=== PATIENT | male | born 1940 | race Caucasian/White ===

== ENCOUNTER 2022-03-14 14:53 | Inpatient (IN) | payer MEDICARE, SELFPAY ==
[2022-03-14] VITALS (8 sets, daily range): BP systolic 57–218; BP diastolic 37–113; PULSE 68–81; RESP 14–19; TEMP 36.2–36.3; O2SAT 91–96
--- NOTE | 2022-03-14 16:13 | ED_ITS ---
HPI - Fall General: Chief Complaint: Fall Stated Complaint: fall, weakness Time Seen by Provider: 03/14/22 15:46 Source: patient and family Mode of arrival: wheelchair Limitations: no limitations History of Present Illness: 81-year-old male presents emergency room complaining of generally not feeling well and being weak. He fell multiple times yesterday when he tripped over some stones and stumbled in the driveway. He denies any loss consciousness or striking his head. He is not on any anticoagulants. Is complaining of severe pain in the abdomen particularly in the right lower quadrant radiating down into his groin. In addition that is complaining of knee pain related on his knees when he initially arrived he was actually very good historian was awake alert oriented answer questions appro priately his family assisted in responding with questions. He denied any chest pain or shortness of breath this time he had no focal neurologic deficits. MD complaint: fall Onset (ago): day(s) Fall from: standing Fall witnessed: yes, by family Place fall occurred: home Loss of consciousness: None Prolonged down time: no Symptoms prior to fall: lightheadedness and dizziness Context: tripped/slipped Location of injury: abdomen Location of injury - extremities: Bilateral: knee Associated symptoms-after fall: Reports abdominal pain, difficulty walking and weakness; Denies chest pain, confusion, headache(s), hematuria, lightheadedness, neck pain, numbness, short of breath or vertigo Review of Systems Const: Reports: body aches, change in appetite, fatigue and malaise; Denies: fever(s) or chills ENMT: Denies: throat pain, ear or mastoid pain, nasal discharge or nasal congestion Card: Denies: chest pain, palpitations, irregular heart rhythm, edema, lightheadedness, dyspnea on exertion or orthopnea Resp: Reports: dyspnea; Denies: productive cough or non-productive cough GI: Reports: abdominal pain and nausea; Denies: vomiting, hematemesis, coffee ground emesis, diarrhea, constipation, bloating, hematochezia or melena : Denies: flank pain, difficulty urinating, dysuria, urinary frequency, urinary urgency or hematuria Musc: Denies: neck pain Skin/Breast: Denies: rash or pruritus Neuro: Reports: difficulty walking; Denies: headache(s), vertigo or confusion PFSH ED PFSH: Medical History Abdominal aortic aneurysm COPD (chronic obstructive pulmonary disease) Hypertension Social History Smoking and tobacco status: former smoker Alcohol intake: former Physical Exam Const: ORIENTATION/CONSCIOUSNESS: Yes awake, Yes oriented to person, Yes oriented to place and Yes oriented to time HENMT: COMMON NORMALS: normocephalic and atraumatic HEAD & SCALP: normocephalic and atraumatic Neck/C-Spine: COMMON NORMALS: no JVD Resp: COMMON NORMALS: normal respiratory effort, No retractions, No use of accessory muscles and clear to auscultation bilaterally AUSCULTATION: clear to auscultation bilaterally Cardio: COMMON NORMALS: no JVD, regular rate, regular rhythm and No murmurs present (Cardio) RATE: regular rate RHYTHM: regular rhythm GI: PALPATION: Yes Tenderness to palpation present (GI) Details: RLQ and No Guarding due to palpation present (GI) OTHER: Large palpable pulsating mass in the right lower quadrant. On palpation is roughly 8 to 10 cm in diameter. It is pulsating and tender. Femoral pulses are palpable bilaterally Extremity: COMMON NORMALS: normal to inspection, capillary refill normal, no clubbing, cyanosis or edema, no calf tenderness and no pedal edema Neuro: SENSORIUM/ORIENTATION: Yes oriented to person, Yes oriented to place and Yes oriented to time Skin: COMMON NORMALS: no rashes or lesions noted GENERAL SKIN EXAM: no rashes or lesions noted Course Vital Signs: Vital signs: Vital Signs Temperature 98.6 F 03/15/22 04:00 Pulse Rate 84 03/15/22 04:00 Respiratory Rate 19 H 03/15/22 04:00 Blood Pressure 83/56 03/15/22 04:00 Pulse Oximetry 91 03/14/22 17:41 MDM - Fall Medical Decision Making Initially upon arrival patient has focal pain in the right lower quadrant there is a pulsating mass and a palpable aneurysm. Shortly after the CT patient rapidly decompensated and was difficult to assess a pulse he became nonresponsive. The family asked that we not intervene they wanted him to be a DN arm. Clinically I still suspect he is having complications of his aneurysm however the CT was read as negative. Family states his health has been deteriorating and they wished for him to just have comfort cares. Discussed with the hospitalist orders written. After he decompensated when the CT was done his heart heart rate dropped into the 40s for period time his blood pressure decreased to 50 systolic. He is given morphine and Ativan for comfort for air hunger and apparent pain. He was also given nasal cannula oxygen. Both the family members present are healthcare providers fully understand where he is at medically and are comfortable with the Do Not Recussitate status. Medical Records I reviewed the patient's medical records. Lab Data I reviewed the patient's lab results. : 03/14/22 22:55 03/14/22 22:[address] 03/14/22 16:14 IMPRESSION: No acute intracranial abnormality. Abdomen/Pelvis CTA 03/14/22 16:24 IMPRESSION: 1. 8.0 cm infrarenal abdominal aortic aneurysm with extension to the bifurcation. No dissection or evidence for rupture. 2. 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 No dissection. 3. 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 Laboratory Results WBC 11.0 10^3/uL (4.0-10.0) H 03/14/22 16:38 RBC 4.60 10^6/uL (4.1-5.3) 03/14/22 16:38 Hgb 14.0 g/dL (11.7-16.6) 03/14/22 16:38 Hct 42.3 % (42.0-52.0) 03/14/22 16:38 MCV 92.0 fl (80-94) 03/14/22 16:38 MCH 30.4 pg (28.0-34.0) 03/14/22 16:38 MCHC 33.1 g/dL (30.0-36.0) 03/14/22 16:38 RDW 13.9 % (12.1-15.1) 03/14/22 16:38 Plt Count 254 10^3/cmm (130-400) 03/14/22 16:38 MPV 10.2 fL (7.4-10.4) 03/14/22 16:38 Neut % (Auto) 82.3 % 03/14/22 16:38 Lymph % (Auto) 9.4 % 03/14/22 16:38 [place] % (Auto) 7.4 % 03/14/22 16:38 Eos % (Auto) 0.3 % 03/14/22 16:38 Baso % (Auto) 0.3 % 03/14/22 16:38 Neut # (Auto) 9.07 10^3/uL (1.8-7.7) H 03/14/22 16:38 Lymph # (Auto) 1.0 10^3/uL (0.8-4.8) 03/14/22 16:38 [place] # (Auto) 0.8 10^3/uL (0.2-0.9) 03/14/22 16:38 Eos # (Auto) 0.0 10^3/uL (0.0-0.8) 03/14/22 16:38 Baso # (Auto) 0.0 10^3/uL (0.0-0.1) 03/14/22 16:38 Nucleated RBC % (auto) 0 % 03/14/22 16:38 Nucleated RBCs # 0.0 /100WBC 03/14/22 16:38 Sodium 141 mmol/L (136-145) 03/14/22 16:38 Potassium 4.7 mmol/L (3.5-5.1) 03/14/22 16:38 Chloride 100 mmol/L (98-107) 03/14/22 16:38 Carbon Dioxide 29 mmol/L (22-29) 03/14/22 16:38 Anion Gap 16.7 (5-19) 03/14/22 16:38 BUN 20 mg/dL (8-23) 03/14/22 16:38 Creatinine 1.0 mg/dL (0.7-1.2) 03/14/22 16:38 GFR Calculation Not Reportable 03/14/22 16:38 Glucose 125 mg/dL (65-115) H 03/14/22 16:38 Calculated Osmolality 296 mOsm/kg (285-295) H 03/14/22 16:38 Calcium 9.8 mg/dL (8.5-10.5) 03/14/22 16:38 Total Bilirubin 0.6 mg/dL (0.15-1.2) 03/14/22 16:38 AST 18 U/L (0-40) 03/14/22 16:38 ALT 11 U/L (0-41) 03/14/22 16:38 Alkaline Phosphatase 75 IU/L (40-130) 03/14/22 16:38 Total Protein 8.0 g/dL (6.6-8.7) 03/14/22 16:38 Albumin 4.9 g/dL (3.5-5.2) 03/14/22 16:38 Globulin 3.1 g/dL (1.3-4.6) 03/14/22 16:38 Discharge Plan Discharge Patient Disposition: Admitted As Inpatient Admit Provider: Eren Hernandez Clinical Impression: Abdominal aortic aneurysm rupture, Acute respiratory failure with hypoxia Condition: Stable Coding Level of Care Code ED Precise Winder for Minesh Morel
--- NOTE | 2022-03-14 16:14 | CTR_ITS ---
PROCEDURE INFORMATION: Exam: CT Head Without Contrast Exam date and time: 03/14/2022 4:44 PM Age: 81 years old Clinical indication: Injury or trauma; Fall; Blunt trauma (contusions or hematomas); Additional info: Fall closed head injury TECHNIQUE: Imaging protocol: Computed tomography of the head without contrast. Radiation optimization: All CT scans at this facility use at least one of these dose optimization techniques: automated exposure control; mA and/or kV adjustment per patient size (includes targeted exams where dose is matched to clinical indication); or iterative reconstruction. COMPARISON: No relevant prior studies available. RADIATION DOSE METRICS: Total DLP (mGy-cm): 968.36 FINDINGS: Brain: No hemorrhage. Moderate diffuse cerebral atrophy and hypoattenuation within the periventricular and deep white matter tracts likely reflecting chronic small vessel ischemic disease. No mass effect. Cerebral ventricles: No ventriculomegaly. Paranasal sinuses: Visualized sinuses are unremarkable. No fluid levels. Mastoid air cells: Visualized mastoid air cells are well aerated. Bones/joints: Unremarkable. No acute fracture. Soft tissues: Unremarkable. CT/CT head wo con* [id number] IMPRESSION: No acute intracranial abnormality.
--- NOTE | 2022-03-14 16:14 | ECG_ITS ---
[facility] Test Date: 2022-03-14 Pat Name: Tor Elena Department: Room: Gender: Male Caterers Helper: : [id number] Requested By: Wenceslao White Order Number: [id number] Caitlyn MD: Ricardo Call M.D. Measurements Intervals [place] Rate: 76 P: 85 VT: 151 QRS: 84 QRSD: 81 T: 84 QT: 377 QTc: 424 Interpretive Statements SINUS RHYTHM POSSIBLE LEFT ATRIAL ENLARGEMENT [-0.1mV P-WAVE IN V1/V2] WARNING: DATA QUALITY MAY AFFECT INTERPRETATION No previous ECG available for comparison Electronically Signed On 03-15-2022 18:57:45 CDT by Ricardo Call M.D. [id number]
--- NOTE | 2022-03-14 16:24 | CTR_ITS ---
PROCEDURE INFORMATION: Exam: CTA Abdomen and Pelvis With Contrast Exam date and time: 03/14/2022 4:51 PM Age: 81 years old Clinical indication: Abdominal pain; Additional info: Palpable aaa TECHNIQUE: Imaging protocol: Computed tomographic angiography of the abdomen and pelvis with contrast. 3D rendering (Not supervised by radiologist): MIP and/or 3D reconstructed images were created by the technologist. Radiation optimization: All CT scans at this facility use at least one of these dose optimization techniques: automated exposure control; mA and/or kV adjustment per patient size (includes targeted exams where dose is matched to clinical indication); or iterative reconstruction. Contrast material: OMNI 350; Contrast volume: 95 ml; Contrast route: INTRAVENOUS (IV); COMPARISON: No relevant prior studies available. RADIATION DOSE METRICS: Total DLP (mGy-cm): 897.72 FINDINGS: Diaphragm: Mild elevation of the left diaphragm. 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 No dissection. Fusiform aneurysmal dilatation of the infrarenal abdominal aorta with an outer wall diameter of 8.0 cm and a contrast opacified lumen of 6.3 cm. This extends to the bifurcation. No dissection or evidence for aneurysm rupture. Celiac trunk and mesenteric arteries: Moderate narrowing of the proximal celiac artery. Calcified plaque with mild stenosis at the origin of the superior mesenteric artery. Renal arteries: No occlusion or significant stenosis. Right iliac arteries: Mild ectasia of the right common iliac artery. Mild calcified plaque in the common and external iliac arteries without significant stenosis. Left iliac arteries: Mild ectasia of the left common iliac artery. Calcified plaque in the common and external iliac arteries without significant stenosis. Liver: No mass. Gallbladder and bile ducts: Densely calcified stones in the gallbladder which is partially contracted. No wall thickening. The bile ducts are normal. Pancreas: Unremarkable. No mass. No ductal dilation. Spleen: Calcified granulomas in the spleen. Adrenal glands: Unremarkable. No mass. Kidneys and ureters: Hypodensities in both kidneys are too small to characterize but are most likely cysts. No follow-up imaging recommended. The kidneys are otherwise unremarkable. No hydronephrosis. 3 mm nonobstructing left renal calculus. Stomach and bowel: Unremarkable. No obstruction. No mucosal thickening. Appendix: No evidence of appendicitis. Intraperitoneal space: Unremarkable. No free air. No significant fluid collection. Lymph nodes: Unremarkable. No enlarged lymph nodes. Urinary bladder: Unremarkable. No mass. Reproductive: Mild enlargement of the prostate.. Bones/joints: 7 mm degenerative anterior subluxation of L5 on S1. Degenerative changes of the lumbar spine with multilevel disc space narrowing and spondylosis. No acute fracture. Soft tissues: Unremarkable. CT/CT angio abdomen pelvis [id number] IMPRESSION: 1. 8.0 cm infrarenal abdominal aortic aneurysm with extension to the bifurcation. No dissection or evidence for rupture. 2. 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 No dissection. 3. 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
[2022-03-14] MEDS: iohexol 350 mg/mL 100 mL Btl IV (16:57)
[2022-03-14 17:02] LABS: Basophils % 0.3 %; Eosinophils % 0.3 %; Hematocrit 42.3 % (42.0-52.0); Lymphocytes % 9.4 %; Mean Corpuscular HGB Conc 33.1 g/dL (30.0-36.0); Mean Corpuscular Hemoglobin 30.4 pg (28.0-34.0); Mean Platelet Volume 10.2 fL (7.4-10.4); Monocytes # 0.8 10^3/uL (0.2-0.9); Monocytes % 7.4 %; Neutrophils # 9.07 10^3/uL (1.8-7.7); Neutrophils % 82.3 %; Nucleated Red Blood Cells % 0 %; Platelet Count 254 10^3/cmm (130-400); Red Cell Distribution Width 13.9 % (12.1-15.1)
--- NOTE | 2022-03-14 17:10 | PC.NURSE ---
blue light alarm going off in patient room, RN took crash cart in, Dr. Belcher at bedside, states they do not want anything done, they discussed this and states comfort only care.
[2022-03-14 17:17] LABS: Alanine Aminotransferase 11 U/L (0-41); Albumin Level 4.9 g/dL (3.5-5.2); Alkaline Phosphatase 75 IU/L (40-130); Anion Gap 16.7 (5-19); Aspartate Amino Transferase 18 U/L (0-40); Blood Urea Nitrogen 20 mg/dL (8-23); Calcium 9.8 mg/dL (8.5-10.5); Carbon Dioxide 29 mmol/L (22-29); Chloride 100 mmol/L (98-107); Globulin 3.1 g/dL (1.3-4.6); Glucose 125 mg/dL (65-115); Osmolality Calculated 296 mOsm/kg (285-295); Potassium 4.7 mmol/L (3.5-5.1); Sodium 141 mmol/L (136-145); Total Bilirubin 0.6 mg/dL (0.15-1.2)
[2022-03-14] MEDS: LORazepam 2 mg/mL INJ 1 mL IVP ×2 (17:26→20:45)
[2022-03-14] MEDS: morphine 4 mg/mL SDV 1 mL IVP (17:26)
--- NOTE | 2022-03-14 17:44 | PC.NURSE ---
FAMILY AT PT BEDSIDE. FAMILY WISHES FOR PT TO BE KEPT COMFORTABLE UNTIL TIME OF . PT GIVEN MORPHINE AND ATIVAN FOR COMFORT. FAMILY HAS NO FURTHER REQUESTS AT THIS TIME.
--- NOTE | 2022-03-14 18:04 | PM.HP ---
Providers/Chief Complaint Primary Care Provider: Sheila Rodriguez DO Chief Complaint: fall, weakness History of Present Illness Tor Elena is a 81 year old male who presents [facility] due to weakness, fatigue, abdominal pain, back pain. Currently patient is not alert and oriented x3, agonal breathing, with central cyanosis, weak thready pulse, does not respond to his name, nasal flaring, intercostal retractions, in respiratory failure, and what appears to be hemorrhagic shock from perforated abdominal aortic aneurysm. Patient's and son who is a medic are at bedside. Patient's and son tell me that for the last few days, patient has been feeling lightheaded, dizzy, has had falls, syncopal episodes. He is also been complaining of abdominal pain and back pain. Patient was brought into the emergency room due to fall, weakness lightheadedness, dizziness, according to ER physician upon arrival he was able to answer questions, his blood pressure was 183/101, saturating 96 on room air, pulse was 81, was responsive, he was pointing to his abdomen, which was pulsating I was told, it was complaining of abdominal pain and back pain. Immediately there was a concern for abdominal aortic aneurysm rupture, he was taken immediately back to CT, CT showed an 8 cm infrarenal abdominal aortic aneurysm with extension with extension to bifurcation, no evidence of rupture or dissection, hemoglobin 14. When he is brought back from CT, according to son and he was alert and awake, responsive but suddenly he became unresponsive onset, his eyes rolled back, became agonal breathing, his blood pressures dropped in pulse became weak and thready. Upon discussion with ER physician and ER staff, the concern was for abdominal aortic aneurysm rupture, patient's and son at bedside had a discussion about goals of care, they wanted to proceed with comfort care, they did not want any medical or surgical intervention. They just wanted their father to be comfortable, to ease his pain eases suffering, has received 4 mg of morphine, 1 mg Ativan. During my examination, patient has a weak thready pulse, at times not detectable, agonal breathing, is nonresponsive, has peripheral cyanosis, central cyanosis around the lips, he is moaning at times, his carotid pulse is barely palpable, he does not respond to his name. I confirmed with family members that he certainly does have abdominal aortic aneurysm with 8 cm, although the CT scan does not show a rupture or dissection. Based upon what I see in front of me right now, it looks like it has ruptured sometime ago, likely after he was brought back from CT. He is abdomen currently is distended,rigid, nonpulsatile, indicating that its likely ruptured. I did offer further work-up to family members however they just want him to be comfortable. Patient is a DNR, DNI. According to family members patient's son and patient's , he would not want to have any aggressive interventions, he would not want to have any surgery, he would not want to have any aggressive interventions, he would just want to remain comfortable at this point, this would be his wish. Dcomfort care, I discussed risks and benefits, they voiced understanding, all questions answered, opportunity to ask questions, they did not have any questions, they just want their father and to remain comfortable. Agreed to proceed with comfort care, will move to 2-73 bed 1 on comfort care. In respect to patient's family, and their loss, as they were crying in the room, I did not ask a detailed medical history, surgical history, social history. I wanted to respect their loss, I wanted them to spend as much as time as they could with thier dying family member, who is in the process of passing away, I wanted to respect their loss. Review of Systems General: Reports: ROS unobtainable due to mental status Medications/Allergies Home Medications Medication Instructions Recorded Confirmed Last Taken Type Vitamin B-12 1 tab PO QAM 03/14/22 03/14/22 Unknown History aspirin 81 mg tablet,delayed 81 mg PO QAM 03/14/22 03/14/22 03/14/22 History release theophylline 400 mg 400 mg PO QAM 03/14/22 03/14/22 03/14/22 History tablet,extended release 24 hr Allergies Allergy/AdvReac Type Severity Reaction Status Date / Time No Known Allergies Allergy Verified 03/14/22 15:53 Vitals/I&O/Wt Last Vital Signs Temp 97.1 F L 03/14/22 15:26 Pulse 81 03/14/22 16:32 Resp 16 03/14/22 16:32 BP 57/37 03/14/22 17:41 Pulse Ox 91 03/14/22 17:41 Weight last 48 hrs Weight 54.431 kg Physical Exam Narrative: Alert oriented x0 In acute respiratory failure, agonal breathing, peripheral and central cyanosis Intercostal retractions, nasal flaring At times his respirations are 0-2 No significant respiratory effort Decreased breath sound in all lung martinez Cardiovascular, heart sounds are distant, I could discern S1, S2, rate is tachycardic, pulses peripherally carotid, and peripheral pulses are weak and thready Abdomen is distended, rigid, I did not palpate or do an extensive examination in respect for patient suffering Does not respond to name, does not open his eyes Data : 03/14/22 16:38 03/14/22 16:38 A&P Assessment and plan (1) Abdominal aortic aneurysm rupture: Intra-abdominal aortic aneurysm rupture, with hemorrhagic shock, with acute respiratory failure Status: Acute (2) Hemorrhagic shock: Status: Acute (3) Acute respiratory failure with hypoxia: Status: Acute (4) Unresponsive: Status: Acute Plan - Proceed with comfort care Attestations Medical Necessity Statement*: Patient requires hospitalization, for inpatient comfort care, for infrarenal intra-abdominal aortic aneurysm rupture Coding Level of Care Code Acute Information Security Consultant for [facility] Diagnoses Abdominal aortic aneurysm rupture I71.3 Hemorrhagic shock R57.8 Acute respiratory failure with hypoxia J96.01 Unresponsive R41.89
[2022-03-14] MEDS: morphine 4 mg/mL SDV 1 mL 2 MG IVP (18:18)
[2022-03-14 23:23] LABS: Basophils % 0.3 %; Hemoglobin 11.9 g/dL (11.7-16.6); Lymphocytes # 0.6 10^3/uL (0.8-4.8); Lymphocytes % 3.8 %; Mean Corpuscular HGB Conc 33.1 g/dL (30.0-36.0); Mean Corpuscular Hemoglobin 30.4 pg (28.0-34.0); Mean Corpuscular Volume 91.8 fl (80-94); Mean Platelet Volume 10.4 fL (7.4-10.4); Monocytes # 1.3 10^3/uL (0.2-0.9); Monocytes % 8.8 %; Neutrophils # 13.04 10^3/uL (1.8-7.7); Neutrophils % 86.4 %; Nucleated Red Blood Cells % 0 %; Platelet Count 218 10^3/cmm (130-400); Red Blood Count 3.92 10^6/uL (4.1-5.3); Red Cell Distribution Width 14.3 % (12.1-15.1); White Blood Count 15.1 10^3/uL (4.0-10.0)
[2022-03-14 23:31] LABS: Alanine Aminotransferase 11 U/L (0-41); Alkaline Phosphatase 66 IU/L (40-130); Blood Urea Nitrogen 24 mg/dL (8-23); Calcium 8.8 mg/dL (8.5-10.5); Carbon Dioxide 24 mmol/L (22-29); Chloride 101 mmol/L (98-107); Globulin 2.9 g/dL (1.3-4.6); Glucose 148 mg/dL (65-115); Osmolality Calculated 291 mOsm/kg (285-295); Sodium 137 mmol/L (136-145); Total Bilirubin 0.5 mg/dL (0.15-1.2); Total Protein 6.9 g/dL (6.6-8.7)
[2022-03-14 23:32] LABS: Anion Gap 16.7 (5-19); Aspartate Amino Transferase 18 U/L (0-40); Potassium 4.7 mmol/L (3.5-5.1)
[2022-03-15 04:00] VITALS: BP 83/56; PULSE 84; RESP 19; TEMP 37
[2022-03-15] MEDS: LORazepam 2 mg/mL INJ 1 mL 1 MG IVP (05:03)
[2022-03-15] MEDS: morphine 4 mg/mL SDV 1 mL IVP ×2 (05:04→11:27)
[2022-03-15] MEDS: morphine 10 mg/0.5 mL oral liq UD 2 MG SUBLINGUAL ×2 (06:41→14:44)
[2022-03-15 08:00] VITALS: PULSE 82; RESP 16
--- NOTE | 2022-03-15 10:41 | PC.CHAP ---
Pastoral Care Encounter/Spiritual Assessment Type of Contact [] Declined customs consultant visit [] Patient/Family/Request visit [] Outpatient visit [] Follow-up visit [] Physician referral [] Code/Alert [x] Routine visit [] Staff referral [] Actively dying [] Patient sleeping [] Family support [] [] Out of room [] Palliative care [x] [x] Receiving care in room [] Pre-surgical visit [] Trauma [x] Long length of stay [] ICU visit [] Other: Relational/Emotional Strength [x] Patient feels connected with others/family/visitors/staff [] Distress [] Loneliness/isolation [] Abandonment Spirituality of Patient [x] Person of Poly [] Attends Mormon of their Poly [x] Believes in Prayer [] Reads Bible or Jew materials [] There are Spiritual issues to be addressed Scoop Operator Interventions [x] Prayer [x] Active listening [x] Non-anxious presence [x] Spiritual/emotional support [x] Crisis/trauma care [] Spiritual counseling [] Bereavement support [] Provided bereavement packet [] Provided Bible/devotional materials [] Provided toy/stuffed animal, coloring book to patient or family member [] Provided Communion [] Anointing/[place] [] Salvation [] Completed spiritual assessment [] Other: Impact on Illness or Injury [] Angry [] Fearful [] Anxious [] Often cries [] Exhaustion [x] Unable to work [] Unable to attend evangelical [] Unable to walk/stand [] Unable to read [] Unable to drive [] Unable to eat/drink [] Unable to sleep [] Unable to be with family [] Patient intubated [] Other: Summary with familyn taking care of doctors report +2 end of life Time spent with patient 10 mins
[2022-03-15 11:27] VITALS: RESP 11
[2022-03-15 11:46] VITALS: PULSE 85; RESP 14; O2SAT 95
--- NOTE | 2022-03-15 14:08 | P.DS_ITS ---
Discharge Providers Date of Admission: 03/14/22 17:32 Date of Discharge: March 15, 2022 Attending Provider at Admission: Eren Hernandez MD Attending Provider at Discharge: Eren Hernandez MD Primary Care Provider: Sheila Rodriguez DO Diagnoses at Discharge Discharge Diagnosis (1) Abdominal aortic aneurysm rupture: Status: Acute (2) Hemorrhagic shock: Status: Acute (3) Acute respiratory failure with hypoxia: Status: Acute (4) Unresponsive: Status: Acute Reason for Visit Reason for Visit: fall, weakness Hospital Course Hospital Course This is a 81-year-old male with a past medical history of hypertension, COPD, who presents to [facility] due to concerns for fall, weakness, syncope, back pain, abdominal pain, and pulsatile abdomen On admission, patient was found to have a pulsatile abdomen, with abdominal pain and back pain, immediately there was concerns for perforated abdominal aortic aneurysm. On presentation he was alert oriented x3, no significant hemodynamic instability, he was taken to CAT scan, and found to have an 8 cm infrarenal abdominal aortic aneurysm with extension to the bifurcation no evidence of dissection or evidence of rupture. Once patient was brought back from CAT scan, in his room, family members were at bedside, patient suddenly became nonresponsive, had a weak and thready pulse, blood pressures 50s over 40s, agonal breathing. Immediately there was concerns for perforated abdominal aortic aneurysm, with hemorrhagic shock, and acute respiratory failure. Patient's son and were at bedside, they did not want to have any medical intervention, they did not want to have any further testing, they wanted to proceed with comfort care, they did not want him to suffer. Patient was admitted to [facility] for comfort care. Throughout the night, patient's blood pressures would fluctuate, did have some hypertensive episodes, his color did improve, his oxygen requirements have increased to 3 L, however his mentation remained depressed, alert oriented x0, was maintaining his airway. Upon my examination the morning of 03/15/2022, he was not responsive, he at times would open his eyes, had agonal breathing, family was concerned as he was not moving his right side, upon my examination it was hard to discern any focal neurologic deficits, as he is not responsive, pupils were pinpoint, nonreactive to light, did not withdraw from pain, did not respond to any stimuli, not respond to sternal rub, had nasal flaring, intercostal retractions, his carotid pulse was palpable, but thready peripheral pulses were certainly weak and thready, compared to yesterday he looked ill a bit more flushed, but still pale. Abdominal exam, abdomen remain hard, rigid, at times I could see pulse of his abdomen, family was telling me that he would wince significantly pain if his abdomen was palpated. However I could not get any pain response from him. I advised family that he has acute hypoxic respiratory failure, acute encephalopathy, evidence of hemorrhagic shock, as his hemoglobin is decreased 11.6, with concerns for perforated abdominal aortic aneurysm. I think due to his sudden deterioration, likely the abdominal aorta which was 8 cm could have perforated now with a contained rupture or it might of dissected. His blood pressures have fluctuated, but remains hypotensive, still has evidence of hemorrhagic shock. Given now given family's concern for right-sided deficits, I cannot discern any, he was fairly nonresponsive, I could not discern any facial droop, but family says that he is not moving his right side, would be evidence of acute CVA, likely secondary to hemorrhagic shock, hypotension received else he can decrease cerebral perfusion. I had a detailed discussion with patient's son, daughter and family at bedside -I discussed options available, we could do further testing, including echo, blood work, repeat CT of the abdomen, CT of the head, and seeing at all if there is any interventions possible -Continue comfort care here in the hospital -Can transition home on comfort care, hospice -I discussed all options available to patient's, all risks and benefits associated, all parties voiced understanding, voiced understanding, all questions answered, opportunity to ask questions -It was family's decision in the emergency room, and as soon as I enter the room the morning of 03/15/2022, that they wanted their father to be comfortable -Patient's son and wanted their father and to remain comfortable, he is his pain is easily suffering, they did not want any further interventions, did not want any further testing, they wanted to take him home on hospice -After discussing the risks and benefits of home hospice, opportunity to ask questions, all parties voiced understanding, all questions answered, agreed to proceed with home hospice -Arrangements were made for home hospice, patient was discharged 03/15/2022 on home hospice Physical Exam Const: OTHER: Not responsive, agonal breathing, at times does open his eyes, Not moving his right side, does have some left-sided movements Pupils are pinpoint nonreactive to light Does not withdraw from stimuli, does not respond to sternal rub Has intercostal retractions, and slight nasal flaring Carotid pulse palpable, is a bit weak and thready Peripheral pulses are certainly thready and weak Looks pale, flushed but better compared to yesterday Resp: COMMON NORMALS: normal respiratory effort, No retractions, No use of accessory muscles and clear to auscultation bilaterally AUSCULTATION: clear to auscultation bilaterally Cardio: COMMON NORMALS: regular rate, regular rhythm, S1 normal heart sound present and S2 normal heart sound present RATE: regular rate RHYTHM: regular rhythm HEART SOUNDS: S1 normal heart sound present and S2 normal heart sound present GI: COMMON NORMALS: Normal to inspection, nondistended, normoactive bowel sounds present, Soft to palpation and non-tender PALPATION: Yes Soft to palpation Extremity: COMMON NORMALS: no pedal edema Discharge Data Studies Completed and Pending Completed Studies During Hospitalization Category Date Time Status CT angio abdomen pelvis [id number] Stat Cat Scan 03/14/22 16:[address] head wo con* [id number] Stat Cat Scan 03/14/22 16:14 Completed Radiology Impressions Head CT 03/14/22 16:14 IMPRESSION: No acute intracranial abnormality. Abdomen/Pelvis CTA 03/14/22 16:24 IMPRESSION: 1. 8.0 cm infrarenal abdominal aortic aneurysm with extension to the bifurcation. No dissection or evidence for rupture. 2. 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 No dissection. 3. 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 Laboratory Results WBC 15.1 10^3/uL (4.0-10.0) H 03/14/22 22:55 RBC 3.92 10^6/uL (4.1-5.3) L 03/14/22 22:55 Hgb 11.9 g/dL (11.7-16.6) 03/14/22 22:55 Hct 36.0 % (42.0-52.0) L 03/14/22 22:55 MCV 91.8 fl (80-94) 03/14/22 22:55 MCH 30.4 pg (28.0-34.0) 03/14/22 22:55 MCHC 33.1 g/dL (30.0-36.0) 03/14/22 22: RDW 14.3 % (12.1-15.1) 03/14/22 22:55 Plt Count 218 10^3/cmm (130-400) 03/14/22 22:55 MPV 10.4 fL (7.4-10.4) 03/14/22 22:55 Neut % (Auto) 86.4 % 03/14/22 22:55 Lymph % (Auto) 3.8 % 03/14/22 22:55 [place] % (Auto) 8.8 % 03/14/22 22: Eos % (Auto) 0.0 % 03/14/22 22: Baso % (Auto) 0.3 % 03/14/22 22: Neut # (Auto) 13.04 10^3/uL (1.8-7.7) H 03/14/22 22: Lymph # (Auto) 0.6 10^3/uL (0.8-4.8) L 03/14/22 22:55 [place] # (Auto) 1.3 10^3/uL (0.2-0.9) H 03/14/22 22: Eos # (Auto) 0.0 10^3/uL (0.0-0.8) 03/14/22 22:55 Baso # (Auto) 0.0 10^3/uL (0.0-0.1) 03/14/22 22: Nucleated RBC % (auto) 0 % 03/14/22 22: Nucleated RBCs # 0.0 /100WBC 03/14/22 22:55 Sodium 137 mmol/L (136-145) 03/14/22 22:55 Potassium 4.7 mmol/L (3.5-5.1) 03/14/22 22: Chloride 101 mmol/L (98-107) 03/14/22 22: Carbon Dioxide 24 mmol/L (22-29) 03/14/22 22:55 Anion Gap 16.7 (5-19) 03/14/22 22:55 BUN 24 mg/dL (8-23) H 03/14/22 22:55 Creatinine 1.6 mg/dL (0.7-1.2) H 03/14/22 22:55 GFR Calculation Not Reportable 03/14/22 22:55 Glucose 148 mg/dL (65-115) H 03/14/22 22:55 Calculated Osmolality 291 mOsm/kg (285-295) 03/14/22 22:55 Calcium 8.8 mg/dL (8.5-10.5) 03/14/22 22:55 Total Bilirubin 0.5 mg/dL (0.15-1.2) 03/14/22 22:55 AST 18 U/L (0-40) 03/14/22 22:55 ALT 11 U/L (0-41) 03/14/22 22:55 Alkaline Phosphatase 66 IU/L (40-130) 03/14/22 22:55 Total Protein 6.9 g/dL (6.6-8.7) 03/14/22 22:55 Albumin 4.0 g/dL (3.5-5.2) 03/14/22 22:55 Globulin 2.9 g/dL (1.3-4.6) 03/14/22 22:55 Vitals Last Vital Signs Temp 98.6 F 03/15/22 04:00 Pulse 85 03/15/22 11:46 Resp 14 03/15/22 11:46 BP 83/56 03/15/22 04:00 Pulse Ox 95 03/15/22 11:46 Discharge Plan Discharge Patient Disposition: Hospice - Home Condition: Critical Prescriptions: Discontinued theophylline 400 mg tablet extended release 24 hr 400 mg PO QAM 0RF aspirin [Aspir-81] 81 mg Tablet,Delayed Release (Dr/Ec) 81 mg PO QAM 0RF Vitamin B-12 1 tab PO QAM 0RF Discharge Orders: Discharge Order (Routine); Ordered 03/15/22 Ordered By: Eren Hernandez Referrals: [facility] [Outside] Sheila Rodriguez DO [Primary Care Provider] - Discharge Diet: As Directed and Cardiac Discharge Activity: Limit activity as instructed Patient Instructions: Hypoxia (GEN) Discharge Attestations Time Spent in Discharge Care*: less than 30 min Quality Metrics Clinical Quality Measures [ Cerebrovascular Accident { Contraindication to Antithrombotic: Drug treatment not indicated; Contraindication to Anticoagulation: Medical contraindication; Contraindication to Statin: Drug treatment not indicated;}. No reported AMI, CVA or VTE this stay] Coding Level of Care Code Acute Chg FW DC note Diagnoses Abdominal aortic aneurysm rupture I71.3 Hemorrhagic shock R57.8 Acute respiratory failure with hypoxia J96.01 Unresponsive R41.89
--- NOTE | 2022-03-15 16:05 | PC.NURSE ---
Discharge Note Patient discharged to home via ambulance accompanied by ambulance personal. Discharge instructions reviewed with patient and/or employment representative. Mobile pharmacy medications and/or prescriptions provided. Belongings/home medications returned.
== END 2022-03-15 16:04 | disposition hospice, home (50) | DRG 299 ==
LOC: ER 16:13 → MEDSURG 18:24
PROVIDERS: Student in an Organized Health Care Education/Training Program; Admitting Provider Family Medicine; Emergency Provider Family Medicine; PCP Family Medicine; Visit Provider Family Medicine
DX: I71.3 Abdominal aortic aneurysm, ruptured (principal); J96.01 Acute respiratory failure with hypoxia; R57.8 Other shock; G93.40 Encephalopathy, unspecified; W19.XXXA Unspecified fall, initial encounter; J44.9 Chronic obstructive pulmonary disease, unspecified; I10 Essential (primary) hypertension; Z87.891 Personal history of nicotine dependence; Z66 Do not resuscitate; Z51.5 Encounter for palliative care; M54.9 Dorsalgia, unspecified; R53.83 Other fatigue; I95.9 Hypotension, unspecified
CPT/HCPCS: 70450; 74174; 80053; 85025; 93005; 96374; 96375; 96376; 99285; J2060; J2270; Q9967